=== PATIENT | male | born 1950 | race African-American/Black ===

== ENCOUNTER 2018-08-13 08:41 | Emergency (ER) | payer OTHER, MEDICAID ==
[~2018-08-13] VITALS: Ht 162.6 cm; Wt 89.0 kg
[2018-08-13 09:36] LABS: BASOPHILS % 0.8 % (0.0-2.0); EOSINOPHILS % 1.7 % (0.0-5.0); HEMATOCRIT. 41.2 % (42.0-52.0); HEMOGLOBIN. 13.8 g/dL (14.0-18.0); LYMPHOCYTES % 25.9 % (20.0-50.0); MEAN CORPUSCULAR HEMOGLOBIN 30.5 pg (28.0-32.0); MEAN CORPUSCULAR VOLUME 91.1 fL (80.0-94.0); MEAN PLATELET VOLUME 8.2 fl (7.4-10.4); MONOCYTES % 12.2 % (2.0-8.0); NEUTROPHILS % 59.4 % (40.0-76.0); PLATELET 163 x1000/uL (130-400); RED BLOOD CELL COUNT 4.52 mill/uL (4.7-6.1); RED CELL DISTRIBUTION WIDTH 14.2 % (11.6-14.6)
[2018-08-13 09:51] LABS: CHLORIDE 105 mEq/L (98-107)
[2018-08-13] MEDS ORDERED: ASPIRIN 81MG TABLET PO ONE (10:15)
[2018-08-13 10:31] VITALS: BP 161/92
[2018-08-13] MEDS ORDERED: MIDAZOLAM HCL 2 MG/2 ML VIAL ONE (12:41)
[2018-08-13] MEDS ORDERED: FENTANYL CITRATE/PF 50MCG/ML 2ML VIAL ONE (12:42)
[2018-08-13] MEDS ORDERED: IOHEXOL-300 100 ML BOTTLE ONE (12:57)
[2018-08-13] MEDS ORDERED: IODIXANOL 320MG/ML 100 ML BOTTLE IV ONE (13:13)
[2018-08-13] MEDS ORDERED: EPTIFIBATIDE 2 MG/ML 10ML VIAL IV ONE (13:27)
[2018-08-13] MEDS ORDERED: TICAGRELOR 90 MG TABLET PO ONE ×2 (13:34→13:38)
[2018-08-13] MEDS ORDERED: ATROPINE SULFATE 0.1MG/ML 10ML DISP.SYRIN ONE (13:45)
[2018-08-14] MEDS ORDERED: GLIP5TAB12 PO (08:20)
[2018-08-14] MEDS ORDERED: IBUP-2030 PO (08:20)
[2018-08-14] MEDS ORDERED: SITA1TBM7 PO (08:20)
[2018-08-14] MEDS ORDERED: LOPHC2 PO (08:20)
[2018-08-14] MEDS ORDERED: ALBU18HF2 IH (08:34)
[2018-08-14] MEDS ORDERED: FLUT16SP15 BOTHNSTRLS (08:37)
== END 2018-08-13 10:30 | disposition left against medical advice (07) ==
LOC: ER 08:41
DX: I24.9 Acute ischemic heart disease, unspecified (principal); R07.89 Other chest pain; E11.9 Type 2 diabetes mellitus without complications; I10 Essential (primary) hypertension
CPT/HCPCS: 36415; 71045; 80053; 83880; 84484; 85025; 99285; J0461; J1327; J2250; J3010; Q9967; J8499

== ENCOUNTER 2018-08-13 11:15 | Inpatient (IN) | payer OTHER, MEDICAID ==
[~2018-08-13] VITALS: Ht 188 cm; Wt 138.3 kg
[2018-08-13] VITALS (19 sets, daily range): BP systolic 104–133; BP diastolic 54–78
[2018-08-13] MEDS ORDERED: SODIUM CHLORIDE 0.9% 1,000 ML IV ONE (12:15)
[2018-08-13] MEDS ORDERED: HEPARIN 5000 UNITS/ML VIAL IV ONE (12:15)
[2018-08-13 12:26] LABS: BASOPHILS % 0.4 % (0.0-2.0); EOSINOPHILS % 0.5 % (0.0-5.0); HEMATOCRIT. 43.5 % (42.0-52.0); HEMOGLOBIN. 14.5 g/dL (14.0-18.0); LYMPHOCYTES % 17.3 % (20.0-50.0); MEAN CORPUSCULAR HEMOGLOBIN 30.7 pg (28.0-32.0); MEAN CORPUSCULAR VOLUME 92.2 fL (80.0-94.0); MEAN PLATELET VOLUME 8.6 fl (7.4-10.4); MONOCYTES % 8.2 % (2.0-8.0); NEUTROPHILS % 73.6 % (40.0-76.0); PLATELET 177 x1000/uL (130-400); RED BLOOD CELL COUNT 4.72 mill/uL (4.7-6.1); RED CELL DISTRIBUTION WIDTH 14.4 % (11.6-14.6)
[2018-08-13 12:37] LABS: CHLORIDE 102 mEq/L (98-107)
[2018-08-13] MEDS ORDERED: HEPARIN SODIUM 1,000 UNIT/1ML VIAL IV ONE (12:40)
[2018-08-13] MEDS ORDERED: EPTIFIBATIDE 2 MG/ML 10ML VIAL IV ONE ×2 (13:28→15:18)
[2018-08-13] MEDS ORDERED: ACETAMINOPHEN 325MG TABLET PO PRN (13:45)
[2018-08-13] MEDS ORDERED: ONDANSETRON HCL 4MG/2ML INJ IV PRN (13:45)
[2018-08-13] MEDS ORDERED: ATROPINE SULFATE 1MG/10ML SYR IV PRN (13:45)
[2018-08-13] MEDS ORDERED: NITROGLYCERIN 50MCG/ML 10ML VIAL (CATH LAB) IV ONE (14:29)
[2018-08-13] MEDS ORDERED: NICARDIPINE 100MCG/ML 10ML VIAL (CATH LAB) IV ONE (14:29)
[2018-08-13] MEDS ORDERED: PHENYLEPHRINE 100MCG/ML 10ML VIAL (CATH LAB) IV ONE (14:29)
[2018-08-13] MEDS ORDERED: SODIUM CHL 0.45% + KCL 20MEQ/L 1,000 ML IV ONE (15:00)
[2018-08-13] MEDS ORDERED: MIDAZOLAM HCL 2 MG/2 ML VIAL ONE (15:16)
[2018-08-13] MEDS ORDERED: FENTANYL CITRATE/PF 50MCG/ML 2ML VIAL ONE (15:17)
[2018-08-13] MEDS ORDERED: ATROPINE SULFATE 0.1MG/ML 10ML DISP.SYRIN ONE (15:17)
[2018-08-13] MEDS ORDERED: IOHEXOL-300 100 ML BOTTLE ONE (15:17)
[2018-08-13] MEDS ORDERED: IODIXANOL 320MG/ML 100 ML BOTTLE IV ONE (15:17)
[2018-08-13] MEDS ORDERED: TICAGRELOR 90 MG TABLET PO ONE ×2 (15:17→15:20)
[2018-08-13 16:39] LABS: OPIATES URINE SCREEN NEGATIVE (NEGATIVE); PHENCYCLIDINE URINE SCREEN NEGATIVE (NEGATIVE)
[2018-08-13 16:40] LABS: *AMPHETAMINES SCREEN URINE NEGATIVE (NEGATIVE); *BARBITURATES SCREEN URINE NEGATIVE (NEGATIVE); *BENZODIAZEPINES SCREEN URINE PRESUMTIVE POSITIVE (NEGATIVE); *COCAINE SCREEN URINE NEGATIVE (NEGATIVE); CANNABINOID URINE SCREEN NEGATIVE (NEGATIVE); METHADONE URINE SCREEN NEGATIVE (NEGATIVE)
[2018-08-13] MEDS ORDERED: DEXTROSE 50% WATER 50ML SYRINGE IV PRN (16:45)
[2018-08-13] MEDS: TICAGRELOR 90 MG TABLET PO SCH (17:08)
[2018-08-13] MEDS: BLOOD SUGAR DIAGNOSTIC STRIP TEST SCH ×2 (17:50→20:27)
[2018-08-13] MEDS: INSULIN LISPRO 100 UNITS/ML SUBCUT SCH ×2 (17:51→20:46)
[2018-08-14] VITALS (28 sets, daily range): BP systolic 98–155; BP diastolic 49–93
[2018-08-14 05:26] LABS: BASOPHILS % 0.8 % (0.0-2.0); EOSINOPHILS % 0.9 % (0.0-5.0); HEMATOCRIT. 40.9 % (42.0-52.0); HEMOGLOBIN. 13.6 g/dL (14.0-18.0); LYMPHOCYTES % 15.3 % (20.0-50.0); MEAN CORPUSCULAR HEMOGLOBIN 30.4 pg (28.0-32.0); MEAN CORPUSCULAR VOLUME 91.2 fL (80.0-94.0); MEAN PLATELET VOLUME 8.3 fl (7.4-10.4); PLATELET 168 x1000/uL (130-400); RED BLOOD CELL COUNT 4.49 mill/uL (4.7-6.1); RED CELL DISTRIBUTION WIDTH 14.3 % (11.6-14.6)
[2018-08-14 05:42] LABS: CHLORIDE 106 mEq/L (98-107)
[2018-08-14 05:48] LABS: HDL CHOLESTEROL 40 mg/dL (40-59); LDL CHOLESTEROL 144 mg/dL (5-100)
[2018-08-14] MEDS: BLOOD SUGAR DIAGNOSTIC STRIP TEST SCH ×3 (07:50→20:39)
[2018-08-14] MEDS ORDERED: GLIP5TAB12 PO (08:20)
[2018-08-14] MEDS ORDERED: IBUP-2030 PO (08:20)
[2018-08-14] MEDS ORDERED: LOPHC2 PO (08:20)
[2018-08-14] MEDS ORDERED: SITA1TBM7 PO (08:20)
[2018-08-14] MEDS ORDERED: ALBU18HF2 IH (08:34)
[2018-08-14] MEDS ORDERED: FLUT16SP15 BOTHNSTRLS (08:37)
[2018-08-14] MEDS: INSULIN LISPRO 100 UNITS/ML SUBCUT SCH ×4 (08:44→20:55)
[2018-08-14] MEDS: TICAGRELOR 90 MG TABLET PO SCH ×2 (08:44→16:41)
[2018-08-14] MEDS: ASPIRIN 81MG TABLET PO SCH (08:44)
[2018-08-14] MEDS ORDERED: ASPIRIN 325MG TABLET PO SCH (09:00)
[2018-08-14] MEDS ORDERED: IPRATROPIUM/ALBUTEROL 0.5-3(2.5)MG/3ML NEB HHN PRN (10:15)
[2018-08-14] MEDS: DOCUSATE SODIUM 100MG CAPSULE PO SCH (10:46)
[2018-08-14] MEDS ORDERED: METOPROLOL TARTRATE 25MG TABLET PO NR (11:15)
[2018-08-14] MEDS: FLUTICASONE PROPIONATE 50MCG/SPRAY BOTTLE BOTHNSTRLS SCH (20:41)
[2018-08-14] MEDS ORDERED: ATORVASTATIN CALCIUM 10MG TABLET PO SCH (21:00)
[2018-08-15 01:58] VITALS: BP 102/59
[2018-08-15 03:58] VITALS: BP 143/61
[2018-08-15 05:58] VITALS: BP 138/94
[2018-08-15] MEDS: BLOOD SUGAR DIAGNOSTIC STRIP TEST SCH (06:32)
[2018-08-15 06:50] LABS: BASOPHILS % 0.5 % (0.0-2.0); EOSINOPHILS % 1.1 % (0.0-5.0); HEMATOCRIT. 38.7 % (42.0-52.0); HEMOGLOBIN. 12.8 g/dL (14.0-18.0); MEAN CORPUSCULAR HEMOGLOBIN 30.2 pg (28.0-32.0); MEAN CORPUSCULAR VOLUME 91.5 fL (80.0-94.0); MEAN PLATELET VOLUME 8.5 fl (7.4-10.4); MONOCYTES % 11.1 % (2.0-8.0); NEUTROPHILS % 68.3 % (40.0-76.0); PLATELET 151 x1000/uL (130-400); RED BLOOD CELL COUNT 4.23 mill/uL (4.7-6.1); RED CELL DISTRIBUTION WIDTH 14.5 % (11.6-14.6)
[2018-08-15] MEDS: INSULIN LISPRO 100 UNITS/ML SUBCUT SCH (07:20)
[2018-08-15 07:44] LABS: CHLORIDE 103 mEq/L (98-107)
[2018-08-15 08:00] VITALS: BP 122/66
[2018-08-15] MEDS: ASPIRIN 81MG TABLET PO SCH (08:08)
[2018-08-15] MEDS: TICAGRELOR 90 MG TABLET PO SCH (08:10)
[2018-08-15] MEDS: DOCUSATE SODIUM 100MG CAPSULE PO SCH (08:10)
[2018-08-15] MEDS: FLUTICASONE PROPIONATE 50MCG/SPRAY BOTTLE BOTHNSTRLS SCH (08:11)
[2018-08-15] MEDS ORDERED: METOPROLOL TARTRATE 25MG TABLET PO SCH (09:00)
[2018-08-15 10:00] VITALS: BP 133/67
[2018-08-15 11:06] VITALS: BP 133/67
[2018-08-15] MEDS ORDERED: IBUPROFEN 800 MG PO PRN (12:00)
[2018-08-15] MEDS ORDERED: LINAGLIPTIN 5MG TABLET PO SCH (12:05)
[2018-08-15] MEDS ORDERED: IBUPROFEN 800MG TABLET PO PRN (12:15)
[2018-08-15] MEDS ORDERED: FLUTICASONE PROPIONATE 50MCG/SPRAY BOTTLE BOTHNSTRLS SCH (17:00)
[2018-08-15] MEDS ORDERED: METFORMIN HCL 500MG TABLET PO SCH (17:20)
[2018-08-16] MEDS ORDERED: METOPROL PO SCH (09:00)
[2018-08-16] MEDS ORDERED: HYDROCHLOROTHIAZIDE PO SCH (09:00)
[2018-08-16] MEDS ORDERED: ALBUTEROL 6.7GM HFA INHALER INH SCH (09:00)
[2018-08-16] MEDS ORDERED: GLIPIZIDE 5MG TABLET PO SCH (09:00)
== END 2018-08-15 13:19 | disposition home or self-care (01) | DRG 247 ==
LOC: ER 11:15 → 3WST 12:07 → EDBEDREQ 12:12 → ENRESERV 12:30 → CVICU 14:00 → 3WST 08-14 16:52
PROVIDERS: ADMIT Internal Medicine; ATTEND Internal Medicine
PROC: 4A023N7 Measurement of Cardiac Sampling and Pressure, Left Heart, Percutaneous Approach (ICD-10-PCS; principal; 2018-08-13)
PROC: 027034Z Dilation of Coronary Artery, One Artery with Drug-eluting Intraluminal Device, Percutaneous Approach (ICD-10-PCS; 2018-08-13)
PROC: B211YZZ Fluoroscopy of Multiple Coronary Arteries using Other Contrast (ICD-10-PCS; 2018-08-13)
PROC: B215YZZ Fluoroscopy of Left Heart using Other Contrast (ICD-10-PCS; 2018-08-13)
PROC: 3E073PZ Introduction of Platelet Inhibitor into Coronary Artery, Percutaneous Approach (ICD-10-PCS; 2018-08-13)
DX: I21.19 ST elevation (STEMI) myocardial infarction involving other coronary artery of inferior wall (principal); E11.9 Type 2 diabetes mellitus without complications; E66.9 Obesity, unspecified; E78.5 Hyperlipidemia, unspecified; I95.9 Hypotension, unspecified; I25.110 Atherosclerotic heart disease of native coronary artery with unstable angina pectoris; I11.9 Hypertensive heart disease without heart failure; I24.9 Acute ischemic heart disease, unspecified; R00.1 Bradycardia, unspecified; Z79.899 Other long term (current) drug therapy; Z87.891 Personal history of nicotine dependence; Z68.39 Body mass index [BMI] 39.0-39.9, adult; Z95.5 Presence of coronary angioplasty implant and graft
CPT/HCPCS: 36415; 80048; 80061; 80305; 82962; 83036; 83880; 84443; 84484; 85347; 92928; 93005; 93306; 93458; 94640; 96361; 96374; 99291; C1725; C1769; C1874; C1887; C1893; J0461; J1327; J1644; J1815; J2250; J2370; J3010; J3480; J3490; J7030; J7620; Q9967; J8499

== ENCOUNTER 2019-07-17 21:11 | Inpatient (IN) | payer MEDICARE, MEDICAID ==
[~2019-07-17] VITALS: Ht 188 cm; Wt 123.9 kg
[~2019-07-17 21:11] MED LIST: ALBU18HF2 IH; FLUT16SP15 BOTHNSTRLS; GLIP5TAB12 PO; IBUP-2030 PO; LOPHC2 PO; SITA1TBM7 PO
[2019-07-18] MEDS ORDERED: SODIUM CHLORIDE 0.9% 1,000 ML IV ONE (02:17)
[2019-07-18] MEDS ORDERED: HYDROCODONE/ACETAMINOPHEN 5/325MG TABLET PO STA (02:17)
[2019-07-18 03:07] LABS: BASOPHILS % 0.7 % (0.0-2.0); EOSINOPHILS % 2.8 % (0.0-5.0); HEMATOCRIT. 38.8 % (42.0-52.0); LYMPHOCYTES % 23.3 % (20.0-50.0); MEAN CORPUSCULAR HEMOGLOBIN 31.1 pg (28.0-32.0); MEAN CORPUSCULAR VOLUME 92.8 fL (80.0-94.0); MEAN PLATELET VOLUME 9.3 fl (7.4-10.4); MONOCYTES % 9.6 % (2.0-8.0); NEUTROPHILS % 63.6 % (40.0-76.0); PLATELET 147 x1000/uL (130-400); RED BLOOD CELL COUNT 4.18 mill/uL (4.7-6.1); RED CELL DISTRIBUTION WIDTH 15.8 % (11.6-14.6)
[2019-07-18 03:14] LABS: CHLORIDE 110 mEq/L (98-107)
[2019-07-18 03:16] LABS: CLARITY URINE CLEAR (CLEAR); COLOR URINE YELLOW (YELLOW); KETONES URINE TRACE (NEGATIVE); LEUKOCYTE ESTERASE URINE NEGATIVE (NEGATIVE); NITRITE URINE NEGATIVE (NEGATIVE); OCCULT BLOOD URINE NEGATIVE (NEGATIVE); PH URINE 5.5 (4.5-8.0); PROTEIN URINE NEGATIVE (NEGATIVE); SPECIFIC GRAVITY URINE 1.025 (1.005-1.030); UROBILINOGEN URINE 0.2 E.U./dL (0.2-1.0)
[2019-07-18] MEDS ORDERED: KETOROLAC 15MG/ML VIAL IV ONE (06:00)
[2019-07-18 07:56] LABS: T4 FREE 0.95 ng/dL (0.76-1.46)
[2019-07-18 08:03] LABS: FOLIC ACID (FOLATE) SERUM 5.9 ng/mL (>5.38)
[2019-07-18 08:40] VITALS: BP 129/65
[2019-07-18] MEDS ORDERED: CLONIDINE 0.1MG TABLET PO PRN (08:45)
[2019-07-18] MEDS ORDERED: ACETAMINOPHEN 325MG TABLET PO PRN (08:45)
[2019-07-18] MEDS ORDERED: DOCUSATE SODIUM 100MG CAPSULE PO PRN (08:45)
[2019-07-18] MEDS ORDERED: ONDANSETRON HCL 4MG/2ML INJ IV PRN (08:45)
[2019-07-18] MEDS ORDERED: DEXTROSE 50% WATER 50ML SYRINGE IV PRN (08:45)
[2019-07-18] MEDS ORDERED: LORAZEPAM 0.5MG TABLET PO PRN (08:45)
[2019-07-18] MEDS ORDERED: MAGNESIUM/ALUMINUM HYDROXIDE/SIMETHICONE 30ML UDC PO PRN (08:45)
[2019-07-18] MEDS ORDERED: NITROGLYCERIN 0.4MG TABLET SL SL PRN (08:45)
[2019-07-18] MEDS ORDERED: TRAMADOL 50MG TABLET PO PRN (08:45)
[2019-07-18] MEDS ORDERED: IPRATROPIUM/ALBUTEROL 0.5-3(2.5)MG/3ML NEB HHN PRN (08:45)
[2019-07-18] MEDS ORDERED: GUAIFENESIN 200MG/10ML SUGAR FREE UDC PO PRN (08:45)
[2019-07-18] MEDS ORDERED: KETOROLAC 15MG/ML VIAL IV PRN (08:45)
[2019-07-18] MEDS ORDERED: IPRA4AER INH (08:58)
[2019-07-18] MEDS ORDERED: METO-385 MT (09:02)
[2019-07-18] MEDS ORDERED: AZEL137S7 BOTHNSTRLS (09:02)
[2019-07-18] MEDS ORDERED: TICA90TA MT (09:02)
[2019-07-18 09:08] VITALS: BP 129/65
[2019-07-18] MEDS: FAMOTIDINE 20MG TABLET PO SCH ×2 (09:55→20:54)
[2019-07-18] MEDS: BLOOD SUGAR DIAGNOSTIC STRIP TEST SCH ×4 (09:56→20:57)
[2019-07-18] MEDS: ENOXAPARIN 30MG/0.3ML SYR SUBCUT SCH ×2 (09:56→20:57)
[2019-07-18 12:00] VITALS: BP 106/51
[2019-07-18] MEDS: INSULIN LISPRO 100 UNITS/ML SUBCUT SCH ×3 (12:05→20:54)
[2019-07-18 12:49] LABS: *AMPHETAMINES SCREEN URINE NEGATIVE (NEGATIVE); *BARBITURATES SCREEN URINE NEGATIVE (NEGATIVE)
[2019-07-18 12:50] LABS: *BENZODIAZEPINES SCREEN URINE NEGATIVE (NEGATIVE); *COCAINE SCREEN URINE NEGATIVE (NEGATIVE); CANNABINOID URINE SCREEN NEGATIVE (NEGATIVE); METHADONE URINE SCREEN NEGATIVE (NEGATIVE); OPIATES URINE SCREEN NEGATIVE (NEGATIVE); PHENCYCLIDINE URINE SCREEN NEGATIVE (NEGATIVE)
[2019-07-18 16:00] VITALS: BP 122/61
[2019-07-18 18:19] LABS: CREATINE KINASE MB FRACTION 5.5 ng/mL (0.5-3.6)
[2019-07-18 18:29] LABS: CREATINE KINASE 1198 IU/L (39-308)
[2019-07-18 20:00] VITALS: BP 118/61
[2019-07-18] MEDS ORDERED: ZOLPIDEM TARTRATE 5MG TABLET PO PRN (21:00)
[2019-07-18 22:00] VITALS: BP 126/63
[2019-07-19] VITALS (8 sets, daily range): BP systolic 108–132; BP diastolic 58–88
[2019-07-19 00:48] LABS: CREATINE KINASE MB FRACTION 4.6 ng/mL (0.5-3.6)
[2019-07-19] MEDS: BLOOD SUGAR DIAGNOSTIC STRIP TEST SCH ×4 (06:32→20:56)
[2019-07-19] MEDS: INSULIN LISPRO 100 UNITS/ML SUBCUT SCH ×4 (06:35→20:55)
[2019-07-19] MEDS: ENOXAPARIN 30MG/0.3ML SYR SUBCUT SCH ×2 (08:12→21:02)
[2019-07-19] MEDS: FAMOTIDINE 20MG TABLET PO SCH ×2 (08:12→21:02)
[2019-07-20] VITALS: BP 110/76
[2019-07-20 04:00] VITALS: BP 114/69
[2019-07-20] MEDS: BLOOD SUGAR DIAGNOSTIC STRIP TEST SCH ×4 (06:06→21:08)
[2019-07-20] MEDS: INSULIN LISPRO 100 UNITS/ML SUBCUT SCH ×4 (07:04→21:00)
[2019-07-20 08:00] VITALS: BP 130/75
[2019-07-20] MEDS: FAMOTIDINE 20MG TABLET PO SCH ×2 (08:44→21:08)
[2019-07-20] MEDS: ENOXAPARIN 30MG/0.3ML SYR SUBCUT SCH ×2 (08:45→21:08)
[2019-07-20 12:00] VITALS: BP 123/66
[2019-07-20 16:00] VITALS: BP 108/71
[2019-07-20 20:00] VITALS: BP 114/70
[2019-07-21] VITALS: BP 133/75
[2019-07-21 04:00] VITALS: BP 134/69
[2019-07-21 04:16] VITALS: BP 134/69
== END 2019-07-21 06:00 | disposition home or self-care (01) | DRG 552 ==
LOC: ER 21:11 → 5WST 07-18 06:31 → ENRESERV 07-18 07:19 → SUPCPDRO 07-18 07:27
PROVIDERS: ADMIT Internal Medicine; ATTEND Internal Medicine
DX: M54.5 Low back pain (principal); R07.89 Other chest pain; R26.2 Difficulty in walking, not elsewhere classified; I10 Essential (primary) hypertension; E11.9 Type 2 diabetes mellitus without complications; D63.8 Anemia in other chronic diseases classified elsewhere; E66.9 Obesity, unspecified; Z59.0 Homelessness; Z68.35 Body mass index [BMI] 35.0-35.9, adult; Z79.4 Long term (current) use of insulin; Z79.899 Other long term (current) drug therapy
CPT/HCPCS: 36415; 71045; 72148; 80061; 80305; 81003; 82550; 82553; 82607; 82746; 82962; 83036; 83540; 83550; 83880; 84439; 84443; 84484; 93005; 93306; 93970; 97162; 97165; 99285; J1650; J1885; J7030